=== PATIENT | female | born 1940 | race Caucasian/White ===

== ENCOUNTER 2017-06-20 07:49 | Inpatient (IN) | payer BC ==
[2017-06-19 14:42] VITALS: BMI 28.5
[~2017-06-20] VITALS: Ht 167.6 cm; Wt 77.8 kg
[2017-06-20] VITALS (36 sets, daily range): BP systolic 102–187; BP diastolic 55–82; PULSE 59–85; RESP 13–24; Ht 167.6 cm; Wt 77.8 kg
[2017-06-20] MEDS ORDERED: ATEN50TA PO (08:46)
--- NOTE | 2017-06-20 09:03 | RADRPT ---
PROCEDURE: XR Chest. CLINICAL INDICATION: Preoperative. TECHNIQUE: Single frontal view. COMPARISON: None. FINDINGS: The lungs are clear. The heart size is normal. There is calcification in the aorta consistent with atherosclerosis. There is no pleural effusion or pneumothorax. There is right shoulder calcific tendonitis. Surgical clips are present in the left upper quadrant o f the abdomen. IMPRESSION: 1. Atherosclerosis. 2. Right shoulder calcific tendonitis. 3. Surgical clips in the left upper quadrant of abdomen. 4. Otherwise unremarkable study. RPTAT: QQ .Rufino Murray MD, MD Date Time Electronically viewed and signed by .Rufino Murray MD, MD on 06/20/2017 09:03 .R/
[2017-06-20] MEDS ORDERED: CEFAZOLIN 1 GM/50 ML (PMX) 50 ML IVPB ONE (09:30)
[2017-06-20 10:20] LABS: BASOPHILS % 0.4 % (0.0-2.0); EOSINOPHILS # 0.2 10^3/ul (0.0-0.5); EOSINOPHILS % 3.7 % (0.0-7.0); HEMATOCRIT 36.8 % (37.0-47.0); HEMOGLOBIN 12.3 g/dl (12.0-16.0); LYMPHOCYTES # 1.6 10^3/ul (0.8-2.9); LYMPHOCYTES % 31.4 % (15.0-51.0); MEAN CORPUSCULAR HEMOGLOBIN 31.2 pg (29.0-33.0); MEAN CORPUSCULAR HGB CONC 33.4 g/dl (32.0-37.0); MEAN CORPUSCULAR VOLUME 93.4 fl (82.0-101.0); MEAN PLATELET VOLUME 10.8 fl (7.4-10.4); MONOCYTE # 0.4 10^3/ul (0.3-0.9); MONOCYTES % 7.6 % (0.0-11.0); NEUTROPHIL # 2.9 10^3/ul (1.6-7.5); NEUTROPHILS % 56.7 % (39.0-77.0); PLATELET COUNT 262 10^3/UL (140-415); RED BLOOD COUNT 3.94 10^6/ul (4.20-5.40); RED CELL DISTRIBUTION WIDTH 13.2 % (11.5-14.5); WHITE BLOOD COUNT 5.1 10^3/ul (4.8-10.8)
[2017-06-20 10:35] LABS: ALBUMIN 4.3 g/dl (3.3-4.9); ALBUMIN/GLOBULIN RATIO 1.26; BILIRUBIN,INDIRECT 0.5 mg/dl (0-1.1); BILIRUBIN,TOTAL 0.5 mg/dl (0.2-1.3); TOTAL PROTEIN 7.7 g/dl (6.1-8.1)
[2017-06-20 10:36] LABS: CALCIUM 9.3 mg/dl (8.4-10.2); CREATININE 0.66 mg/dl (0.44-1.00); INR 0.99; PARTIAL THROMBOPLASTIN TIME 29.8 Sec (25.0-35.0); POTASSIUM 3.8 mmol/L (3.5-5.1); PROTIME 13.1 Sec (12.2-14.2)
[2017-06-20] MEDS ORDERED: ROCURONIUM 50 MG INJ ONE (10:38)
[2017-06-20] MEDS ORDERED: MIDAZOLAM 1 MG/ML 2 ML INJ ONE (10:38)
[2017-06-20] MEDS ORDERED: FENTAnyl 50 MCG/ML VIAL ONE (10:38)
[2017-06-20] MEDS ORDERED: ROPIVACAINE 0.2% 20 ML VIAL ONE (10:38)
[2017-06-20] MEDS ORDERED: PROPOFOL 20 ML ONE (10:38)
[2017-06-20] MEDS ORDERED: POLYMYXIN/BACITRACIN 1L IRRIG ONE (11:33)
[2017-06-20] MEDS ORDERED: ONDANSETRON 4 MG INJ ONE (11:45)
[2017-06-20] MEDS ORDERED: METOCLOPRAMIDE 10 MG INJ ONE (11:45)
[2017-06-20] MEDS ORDERED: ACETAMINOPHEN 1000MG/100ML IV 100 ML ONE (11:45)
[2017-06-20] MEDS ORDERED: DEXAMETHASONE 4 MG/ML 1 ML INJ ONE (11:45)
[2017-06-20] MEDS ORDERED: SUGAMMADEX SODIUM 200 MG/2 ML VIAL IV ONE (11:53)
[2017-06-20] MEDS ORDERED: FENTAnyl 50 MCG/ML VIAL IV PRN (12:00)
[2017-06-20] MEDS ORDERED: morphine (1 MG/ML) 10ML SYRINGE IV PRN ×2 (12:00)
[2017-06-20] MEDS ORDERED: hydrALAzine 20 MG INJ IV PRN (12:00)
[2017-06-20] MEDS ORDERED: LABETALOL HCL 20MG INJ IV PRN (12:00)
[2017-06-20] MEDS ORDERED: EPHEDrine SULFATE 50 MG/5 ML SYG IV PRN (12:00)
[2017-06-20] MEDS ORDERED: HYDROmorphONE (0.2 MG/ML) 10ML SYG IV PRN ×2 (12:00)
[2017-06-20] MEDS ORDERED: DIPHENHYDRAMINE 50 MG INJ IV PRN (12:00)
[2017-06-20] MEDS ORDERED: MEPERIDINE 25 MG INJ IV PRN (12:00)
[2017-06-20] MEDS ORDERED: METOCLOPRAMIDE 10 MG INJ IV PRN (12:00)
[2017-06-20] MEDS ORDERED: ONDANSETRON 4 MG INJ IV PRN ×2 (12:00→14:00)
[2017-06-20] MEDS ORDERED: CEFAZOLIN 1 GM INJ ONE (12:06)
[2017-06-20] MEDS: HYDROmorphONE (0.2 MG/ML) 10ML SYG IV PRN ×3 (12:42→14:02)
--- NOTE | 2017-06-20 13:35 | SIPON ---
Date/Time of Note Date/Time of Note DATE: 06/20/17 TIME: 13:33 Operative Report Preoperative Diagnosis Symptomatic incarcerated ventral hernia Postoperative Diagnosis Same Operation/Procedure Performed Repair of incarcerated symptomatic ventral hernia with mesh Surgeon see signature line project administrative assistant None Anesthesia: general Estimated blood loss: 10 - 50 ml's Transfusion Required none Specimen Hernia sac Grafts/Implants none Complications none MARYLIN LINDA MD Jun 20, 2017 13:35
--- NOTE | 2017-06-20 13:52 | OPR ---
DATE OF OPERATION: 06/20/2017 PREOPERATIVE DIAGNOSIS: Large incarcerated ventral hernia. POSTOPERATIVE DIAGNOSIS: Large incarcerated ventral hernia. OPERATION PERFORMED: Repair of incarcerated ventral hernia with mesh and local skin flap advancement for mesh coverage. ANESTHESIA: General. ANESTHESIOLOGIST: . SURGEON: Dr. Johnson. POTATO SPOTTER: None. INDICATIONS FOR PROCEDURE: The patient is a 76-year-old female who has a pertinent past medical history of ovarian cancer. She has had previous abdominal and pelvic surgery. She developed a very large ventral incisional hernia. She was quite symptomatic and incarcerated. She was counseled as to the risks versus benefits of repair. She consented and was scheduled for surgery. OPERATIVE PROCEDURE: Patient was brought to the operating theater, placed under general endotracheal tube anesthesia. The abdomen was prepped and draped in the usual sterile fashion. The previous surgical incisional scar in the midline was opened from a point approximately 4 cm above the umbilicus, around the left side of the umbilicus and then to 0.4 cm below the umbilicus. The incision was carried out with 15 blade scalpel. Subcutaneous tissue was dissected with cautery down to the abdominal wall fascia. The fascia in the midline was very sparse. The fascia was elevated and incised allowing entry into the abdominal cavity. Moderate adhesions were taken down with combination of sharp dissection and cautery. A very large hernia defect was then identified. The contents of the hernia were meticulously dissected from the hernia sac, returned to the abdominal cavity. The sac was then resected and sent for pathologic analysis. The defect was approximately 8 cm x 10 cm. Therefore, an appropriate composite mesh patch was requested. It was soaked in antibiotic- containing saline. It was then placed into the hernia defect and sutured circumferentially with 0 Prolene sutures to the abdominal wall. The portion of the mesh that was exposed to open air was then covered by mobilizing flaps of tissue both medially and laterally. The flaps were then sutured together with 2-0 Vicryl sutures. Due to the large size of the defect, Dr. Johnson made the decision to place a #10 flat Indra-Olmstead drain through the right side of the abdominal wall, was cut to size, laid within the wound cavity and secured in place with 2-0 nylon suture in the standard fashion. The skin was then reapproximated with skin amparo. Patient tolerated the procedure well. ESTIMATED BLOOD LOSS: Approximately 30 mL. COMPLICATIONS: There were no complications. DISPOSITION: The patient was transferred in stable condition to the recovery room. Dictated By: Ash Johnson MD /dylan/misael /Document#: [id number]
[2017-06-20] MEDS ORDERED: morphine 2 MG INJ IV PRN (14:00)
--- NOTE | 2017-06-20 15:07 | RADRPT ---
Vent Rate: 53 bpm RR Interval: 0 msec MT Interval: 222 msec QRS Duration: 86 msec QT Interval: 448 msec QTC Interval: 420 msec P-R-T [place]: 71 - 57 - 65 degrees Sinus bradycardia with 1st degree AV block Nonspecific T wave abnormality Abnormal ECG Electronically Signed By: Dheeraj Galvez [id number]
[2017-06-20] MEDS: D5W-0.45 NACL + KCL 20 MEQ 1,000 ML IV SCH ×2 (15:17→21:35)
[2017-06-20] MEDS ORDERED: IBUPROFEN 400 MG TAB PO PRN (16:00)
[2017-06-20] MEDS ORDERED: ACETAMINOPHEN 325 MG TAB PO PRN (16:30)
--- NOTE | 2017-06-20 17:31 | HP ---
DATE OF ADMISSION: 06/20/2017 CHIEF COMPLAINT/HISTORY OF PRESENT ILLNESS: Patient is a 76-year- old female with history of hypertension, ovarian cancer, which was treated with extensive surgery done by Dr. Dheeraj Jeong and also underwent chemotherapy. Patient subsequently developed a large ventral hernia and was seen by Dr. Johnson as an outpatient. Patient was brought into the hospital today and was noted to have a large incarcerated ventral hernia, for which he underwent repair of incarcerated ventral hernia with mesh and local skin flap advancement for mesh coverage. Patient did have postoperative pain and is being admitted for further evaluation and management. Patient denied any recent chest pain, shortness of breath. No recent nausea, vomiting, or diarrhea. Patient did have a history of bowel obstruction during her surgery for ovarian cancer. Patient denied any subsequent episode of bowel obstruction. No reported headache, dizziness, or syncope. No history of focal weakness. No history of shortness of breath. No history of orthopnea and no history of leg edema. Rest of review of systems is unremarkable. PAST MEDICAL HISTORY: As stated above. In addition, patient also has history of bilateral cataract repair. ALLERGIES: PATIENT IS NOT SURE IF SHE IS ALLERGIC TO ANY MEDICATION. SOCIAL HISTORY: Ex-smoker, quit smoking 10 years ago. FAMILY HISTORY: Mother of ovarian cancer. MEDICATIONS PRIOR TO ADMISSION: Atenolol 50 mg once a day. PHYSICAL EXAMINATION: GENERAL: Patient conscious, awake, alert. VITAL SIGNS: Temperature 98.3, pulse 85, respiratory rate 18, blood pressure 172/72. O2 sat 98 percent on 2 L nasal cannula. HEENT EXAM: Normal. Oropharynx clear. NECK: Supple. No thyromegaly. CHEST: Fairly clear. CARDIAC: Normal. No murmur. ABDOMEN: Soft, status post surgery. EXTREMITIES: No leg edema. Pedal pulses palpable. SKIN: Without rash. NEUROLOGIC: Patient is awake, alert, with no gross focal deficits. LABORATORY: WBC 5.1, hemoglobin 12.3, platelets 262. Sodium 143, potassium 3.8, BUN 10, creatinine 0.6, glucose 102, calcium 9.3. AST 22, ALT 32, alk phos 82. IMPRESSION: 1. Large incarcerated ventral hernia, status post repair. 2. Hypertension. 3. Ovarian cancer, status post surgery and chemotherapy. PLAN: Patient admitted on medical floor. Patient was started on clear liquid diet, and I will resume her atenolol. Patient will also be given Tylenol, Wilson and IV morphine for pain control. Continue Zofran for nausea and vomiting, and SCDs for DVT prophylaxis. Plan of care discussed with nursing staff. Dictated By: Yoel Shin MD /dylan/roger /Document#: [id number]
[2017-06-20] MEDS: HYDROCODONE/APAP (5/325) TAB PO PRN ×2 (17:58→21:51)
[2017-06-20] MEDS ORDERED: VITAMIN A & D 5 GM OINT PACKET TOP ONE (19:40)
[2017-06-20] MEDS: ATENOLOL 50 MG TAB PO SCH (20:08)
[2017-06-21] MEDS: HYDROCODONE/APAP (5/325) TAB PO PRN ×5 (02:40→20:15)
[2017-06-21] MEDS: D5W-0.45 NACL + KCL 20 MEQ 1,000 ML IV SCH ×4 (02:40→21:35)
[2017-06-21 05:04] VITALS: BP 136/64; PULSE 58; RESP 18
[2017-06-21 08:33] VITALS: BP 132/60; RESP 18
[2017-06-21 15:53] VITALS: BP 130/60; RESP 18
--- NOTE | 2017-06-21 16:08 | PN ---
Date/Time of Note Date/Time of Note DATE: 06/21/17 TIME: 16:04 Assessment/Plan VTE Prophylaxis VTE Prophylaxis Intervention: SCD's Lines/Catheters IV Catheter Type (from Nrs): Peripheral IV Urinary Cath still in place: No Assessment/Plan Chief Complaint/Hosp Course No flatus, tolerates diet well, denies N/V. Problems: Assessment/Plan - Large incarcerated ventral hernia, status post repair. - Hypertension. - Ovarian cancer, status post surgery and chemotherapy. Exam/Review of Systems Vital Signs Vitals Vital Signs Date Time Temp Pulse Resp B/P Pulse Ox O2 Delivery O2 Flow Rate FiO2 06/21/17 15:53 98.0 70 18 130/60 90 06/21/17 05:04 Room Air 06/20/17 19:49 2.0 Intake and Output 06/20/17 06/20/17 06/21/17 15:00 23:00 07:00 Intake Total 1000 ml 570 ml 1230 ml Output Total 35 ml 690 ml 1740 ml Balance 965 ml -120 ml -510 ml Exam Constitutional: alert, oriented Neck: supple Respiratory: normal air movement Cardiovascular: nl pulses Gastrointestinal: non-tender, other (s/p surgery, LEROY), soft Results Result Diagram: 06/20/1792706/20/17927 Medications Medications Current Medications Ondansetron HCl (Zofran Inj) 4 mg Q6H PRN IV NAUSEA AND/OR VOMITING; Start at 14:00 Morphine Sulfate 2 mg 2 mg Q1H PRN IV PAIN; Start 06/20/17 at 14:00 Potassium Chloride/Dextrose/ Sod Cl (D5-1/2ns + KCl 20 Meq) 1,000 ml @ 125 mls/ hr Q8H IV Last administered on 06/21/17 02:40; Admin Dose 125 MLS/HR; Start at 13:35 Ibuprofen (Motrin) 400 mg Q6H PRN PO PAIN OR TEMP ABOVE 38C; Start 06/20/17 at 16:00 Atenolol (Tenormin) 50 mg QHS PO Last administered on 06/20/17 20:08; Admin Dose 50 MG; Start 06/20/17 at 21:00 Acetaminophen (Tylenol Tab) 650 mg Q4H PRN PO PAIN AND OR ELEVATED TEMP; Start 06/20/17 at 16:30 Acetaminophen/ Hydrocodone Bitart ([place] (5/325)) 1 tab Q4H PRN PO PAIN LEVEL 4 -6 Last administered on 06/21/17t 11:32; Admin Dose 1 TAB; Start 06/20/17 at 16: 30 JOHANNA CORREIA Jun 21, 2017 16:08
[2017-06-21] MEDS: ATENOLOL 50 MG TAB PO SCH (20:15)
[2017-06-21 20:22] VITALS: BP 170/76; RESP 20
[2017-06-22 00:20] VITALS: BP 155/69; PULSE 66; RESP 18
[2017-06-22] MEDS: HYDROCODONE/APAP (5/325) TAB PO PRN ×6 (02:36→22:31)
[2017-06-22] MEDS: D5W-0.45 NACL + KCL 20 MEQ 1,000 ML IV SCH ×3 (04:10→21:35)
[2017-06-22 06:10] VITALS: BP 147/71; PULSE 59; RESP 18
[2017-06-22 08:42] VITALS: BP 164/71; RESP 20
--- NOTE | 2017-06-22 12:04 | PN ---
DATE: 06/21/2017 SUBJECTIVE DATA: The patient is status post-repair of the incisional ventral hernia with mesh. Status postop day number 1. The patient complains of too much pain. No nausea, no vomiting. But no passing gas. No bowel movement. OBJECTIVE: GENERAL: Patient is alert, awake. VITAL SIGNS: Temperature 98.1, heart rate 77, respirations 17, blood pressure 137/64. Saturation 98-90 percent on 2 L nasal cannula. Indra-Olmstead drain has drained, in the past 24 hour, 105 mL, and 2 today from 7 a.m. to now which is 6 a.m., and has drained about 50 mL, it is sanguinous to serosanguineous. ABDOMEN: Soft. Dressing is intact. Bowel sounds present. No calf tenderness. ASSESSMENT AND PLAN: The patient is a 76-year-old female status post-laparotomy and repair of the large ventral incisional hernia with Composix mesh. The patient is doing fine. There is a drain in place which is draining sanguinous kind of fluid. It has been 50 mL since 7 o'clock in the morning. The patient has not had a bowel movement, not passing gas. Also, complaining of too much pain. We will keep the patient at least 1 night tonight extra until tomorrow morning, and we will evaluate tomorrow and if stable we can discharge her tomorrow morning. Dictated By: James Abreu MD /dylan/chris /Document#: [id number]
--- NOTE | 2017-06-22 12:20 | PN ---
Date/Time of Note Date/Time of Note DATE: 06/22/17 TIME: 12:20 Assessment/Plan VTE Prophylaxis VTE Prophylaxis Intervention: other Lines/Catheters IV [facility] Saline Lock Urinary Cath still in place: No Assessment/Plan Chief Complaint/Hosp Course - Large incarcerated ventral hernia, status post repair. - Hypertension. - Ovarian cancer, status post surgery and chemotherapy. Problems: Subjective 24 Hr Interval Summary Free Text/Dictation Patient has some residual abdominal pain Exam/Review of Systems Vital Signs Vitals Vital Signs Date Time Temp Pulse Resp B/P Pulse Ox O2 Delivery O2 Flow Rate FiO2 06/22/17 08:42 98.3 60 20 164/71 96 06/22/17 06:10 Room Air 06/20/17 19:49 2.0 Intake and Output 06/21/17 06/21/17 06/22/17 15:00 23:00 07:00 Intake Total 400 ml 1200 ml 950 ml Output Total 20 ml 935 ml Balance 400 ml 1180 ml 15 ml Exam Constitutional: well developed Head: atraumatic, normocephalic Neck: supple Respiratory: clear to auscultation Cardiovascular: regular rate and rhythm Gastrointestinal: non-tender, soft Extremities: normal pulses Results Result Diagram: 06/20/1792706/20/17927 Medications Medications Current Medications Ondansetron HCl (Zofran Inj) 4 mg Q6H PRN IV NAUSEA AND/OR VOMITING; Start at 14:00 Morphine Sulfate 2 mg 2 mg Q1H PRN IV PAIN; Start 06/20/17 at 14:00 Potassium Chloride/Dextrose/ Sod Cl (D5-1/2ns + KCl 20 Meq) 1,000 ml @ 125 mls/ hr Q8H IV Last administered on 06/21/17 02:40; Admin Dose 125 MLS/HR; Start at 13:35 Ibuprofen (Motrin) 400 mg Q6H PRN PO PAIN OR TEMP ABOVE 38C; Start 06/20/17 at 16:00 Atenolol (Tenormin) 50 mg QHS PO Last administered on 06/21/17 20:15; Admin Dose 50 MG; Start 06/20/17 at 21:00 Acetaminophen (Tylenol Tab) 650 mg Q4H PRN PO PAIN AND OR ELEVATED TEMP; Start 06/20/17 at 16:30 Acetaminophen/ Hydrocodone Bitart ([place] (5/325)) 1 tab Q4H PRN PO PAIN LEVEL 4 -6 Last administered on 06/22/17t 10:34; Admin Dose 1 TAB; Start 06/20/17 at 16: 30 Clonidine (Catapres) 0.1 mg Q6H PRN PO SBP GREATER THAN 160; Start 06/22/17 at 09:30 ABI CLAYTON Jun 22, 2017 12:20
[2017-06-22 18:49] VITALS: BP 148/66; PULSE 61
[2017-06-22] MEDS: ATENOLOL 50 MG TAB PO SCH (20:41)
[2017-06-22 21:20] VITALS: BP 142/64; RESP 20
[2017-06-23 02:29] VITALS: BP 113/58; RESP 20
[2017-06-23] MEDS: HYDROCODONE/APAP (5/325) TAB PO PRN ×6 (02:59→23:26)
[2017-06-23] MEDS: D5W-0.45 NACL + KCL 20 MEQ 1,000 ML IV SCH ×3 (05:35→21:35)
[2017-06-23 08:20] VITALS: BP 143/64; RESP 20
--- NOTE | 2017-06-23 10:47 | PN ---
Date/Time of Note Date/Time of Note DATE: 06/23/17 TIME: 10:46 Assessment/Plan VTE Prophylaxis VTE Prophylaxis Intervention: other Lines/Catheters IV Catheter Type (from Nrs): Saline Lock Urinary Cath still in place: No Assessment/Plan Chief Complaint/Hosp Course - Large incarcerated ventral hernia, status post repair. - Hypertension. - Ovarian cancer, status post surgery and chemotherapy. Problems: Subjective 24 Hr Interval Summary Free Text/Dictation Patient still have pain related to the hernia repair Exam/Review of Systems Vital Signs Vitals Vital Signs Date Time Temp Pulse Resp B/P Pulse Ox O2 Delivery O2 Flow Rate FiO2 06/23/17 08:20 98.1 54 20 143/64 95 06/22/17 06:10 Room Air 06/20/17 19:49 2.0 Intake and Output 06/22/17 06/22/17 06/23/17 15:00 23:00 07:00 Intake Total 720 ml 360 ml Output Total 30 ml 25 ml Balance 690 ml 335 ml Exam Constitutional: well developed Head: normocephalic Neck: supple Respiratory: clear to auscultation Cardiovascular: regular rate and rhythm Gastrointestinal: non-tender, soft Extremities: normal pulses Results Result Diagram: 06/20/1792706/20/17927 Medications Medications Current Medications Ondansetron HCl (Zofran Inj) 4 mg Q6H PRN IV NAUSEA AND/OR VOMITING; Start at 14:00 Morphine Sulfate 2 mg 2 mg Q1H PRN IV PAIN; Start 06/20/17 at 14:00 Potassium Chloride/Dextrose/ Sod Cl (D5-1/2ns + KCl 20 Meq) 1,000 ml @ 125 mls/ hr Q8H IV Last administered on 06/21/17 02:40; Admin Dose 125 MLS/HR; Start at 13:35 Ibuprofen (Motrin) 400 mg Q6H PRN PO PAIN OR TEMP ABOVE 38C; Start 06/20/17 at 16:00 Atenolol (Tenormin) 50 mg QHS PO Last administered on 06/22/17 20:41; Admin Dose 50 MG; Start 06/20/17 at 21:00 Acetaminophen (Tylenol Tab) 650 mg Q4H PRN PO PAIN AND OR ELEVATED TEMP; Start 9/28/17 at 16:30 Acetaminophen/ Hydrocodone Bitart ([place] (5/325)) 1 tab Q4H PRN PO PAIN LEVEL 4 -6 Last administered on 06/23/17 06:57; Admin Dose 1 TAB; Start 06/20/17 at 16: 30 Clonidine (Catapres) 0.1 mg Q6H PRN PO SBP GREATER THAN 160 Last administered on 06/22/17 17:05; Admin Dose 0.1 MG; Start 06/22/17 at 09:30 ABI CLAYTON Jun 23, 2017 10:47
[2017-06-23] MEDS ORDERED: MAGNESIUM HYDROXIDE 30ML CUP PO STA (12:32)
[2017-06-23] MEDS ORDERED: MAGNESIUM HYDROXIDE 30ML CUP PO PRN (13:00)
[2017-06-23 13:46] LABS: BASOPHILS % 0.5 % (0.0-2.0); EOSINOPHILS # 0.5 10^3/ul (0.0-0.5); EOSINOPHILS % 8.4 % (0.0-7.0); HEMATOCRIT 35.2 % (37.0-47.0); HEMOGLOBIN 11.7 g/dl (12.0-16.0); LYMPHOCYTES # 1.8 10^3/ul (0.8-2.9); LYMPHOCYTES % 33.2 % (15.0-51.0); MEAN CORPUSCULAR HEMOGLOBIN 31.4 pg (29.0-33.0); MEAN CORPUSCULAR HGB CONC 33.2 g/dl (32.0-37.0); MEAN CORPUSCULAR VOLUME 94.4 fl (82.0-101.0); MEAN PLATELET VOLUME 10.4 fl (7.4-10.4); MONOCYTE # 0.4 10^3/ul (0.3-0.9); MONOCYTES % 7.5 % (0.0-11.0); NEUTROPHIL # 2.8 10^3/ul (1.6-7.5); NEUTROPHILS % 50.2 % (39.0-77.0); PLATELET COUNT 277 10^3/UL (140-415); RED BLOOD COUNT 3.73 10^6/ul (4.20-5.40); RED CELL DISTRIBUTION WIDTH 13.5 % (11.5-14.5); WHITE BLOOD COUNT 5.5 10^3/ul (4.8-10.8)
--- NOTE | 2017-06-23 14:28 | PN ---
DATE: 06/23/2017 SUBJECTIVE DATA: Postop day number 3, status post laparotomy, repair of the large incarcerated ventral incisional hernia with placement of the mesh. Still complaining of some pain in the abdominal area. Has not had any bowel movement since admission. Is passing gas today only. States that her blood pressure was very high around 190s last night. The patient medication and Dr. Courtney Ceja, internal medicine, preferred to keep the patient one more day to control her blood pressure. OBJECTIVE: Awake, alert, oriented x3. Vital signs: Temperature 98.3, heart rate 54, respirations 20, blood pressure 143/64, saturation 95 percent on room air. Heart with regular rhythm. Lungs clear. Abdomen: Soft. Indra-Olmstead drain is in place draining serosanguineous fluid. Total drainage in past 24 hours, 65 cc and since morning until now is 75 cc. LABORATORY AND DIAGNOSTIC DATA: No lab has been done today. ASSESSMENT: Patient with status post repair of large incarcerated ventral incisional hernia, postoperative day number 3. The problem is the patient has had fluctuation and high blood pressure. She is being treated with medication to control it. The patient has not had any bowel movement yet. Is tolerating diet. So we are going to give some milk of magnesia today, make sure patient is ambulating and hopefully by tomorrow, the patient can be discharged home. Dictated By: James Abreu MD /dylan/gwendolyn /Document#: [id number]
[2017-06-23 16:00] VITALS: BP 173/76; RESP 20
[2017-06-23] MEDS: ATENOLOL 50 MG TAB PO SCH (20:44)
[2017-06-23 21:07] VITALS: BP_SYST 148; BP_SYST 150; BP_DIAS 66; BP_DIAS 71; RESP 19
[2017-06-23 23:07] VITALS: BP 137/63; PULSE 62; RESP 20
[2017-06-24 02:25] VITALS: BP 147/67; RESP 18
[2017-06-24] MEDS: HYDROCODONE/APAP (5/325) TAB PO PRN ×4 (03:29→18:02)
[2017-06-24 04:13] VITALS: BP 129/60; PULSE 59; RESP 2
[2017-06-24] MEDS: D5W-0.45 NACL + KCL 20 MEQ 1,000 ML IV SCH ×2 (05:35→13:01)
[2017-06-24 07:02] VITALS: BP 117/57
[2017-06-24 08:17] VITALS: BP 117/56; RESP 18
[2017-06-24 13:46] VITALS: BP 135/63; RESP 18
[2017-06-24] MEDS ORDERED: CLON0.1T14 PO (16:32)
[2017-06-24] MEDS ORDERED: HYDR-3498 PO (16:32)
[2017-06-24] MEDS ORDERED: ATEN50TA PO (16:32)
--- NOTE | 2017-06-24 19:48 | DS ---
Date/Time of Note Date/Time of Note DATE: 06/24/17 TIME: 19:46 Discharge Summary Admission/Discharge Info Admit Date/Time Jun 22, 2017 at 16:16 Discharge Date/Time Patient Condition: Stable Hx of Present Illness Patient is a 76-year- old female with history of hypertension, ovarian cancer, which was treated with extensive surgery done by Dr. Dheeraj Jeong and also underwent chemotherapy. Patient subsequently developed a large ventral hernia and was seen by Dr. Johnson as an outpatient. Patient was brought into the hospital today and was noted to have a large incarcerated ventral hernia, for which he underwent repair of incarcerated ventral hernia with mesh and local skin flap advancement for mesh coverage. Patient did have postoperative pain and is being admitted for further evaluation and management. Patient denied any recent chest pain, shortness of breath. No recent nausea, vomiting, or diarrhea. Patient did have a history of bowel obstruction during her surgery for ovarian cancer. Patient denied any subsequent episode of bowel obstruction. No reported headache, dizziness, or syncope. No history of focal weakness. No history of shortness of breath. No history of orthopnea and no history of leg edema. Rest of review of systems is unremarkable. Hospital Course - Large incarcerated ventral hernia, status post repair by Dr Johnson. - Hypertension. Continue atenolol and clonidine as needed - Ovarian cancer, status post surgery and chemotherapy. Home Meds Active Scripts Clonidine Hcl* (Catapres*) 0.1 Mg Tablet, 0.1 MG PO Q6H Y for SBP GREATER THAN 160, #30 TAB Prov:JOHANNA CORREIA 06/24/17 Hydrocodone Bit-Acetaminophen (Hydrocodone Bit-APAP) 5-325MG Tablet, 1 TAB PO Q4H Y for PAIN LEVEL 4-6, #30 TAB Prov:JOHANNA CORREIA 06/24/17 Atenolol* (Atenolol*) 50 Mg Tablet, 50 MG PO QHS, #30 TAB Prov:JOHANNA CORREIA 06/24/17 Follow-up Plan Follow-up with PMD in 2 weeks, follow-up with Dr. Johnson in 2 weeks Primary Care Provider Not On Staff Doctor Time spent on discharge: > 30 minutes JOHANNA CORREIA Jun 24, 2017 19:48
--- NOTE | 2017-06-25 06:50 | PN ---
DATE: 06/24/2017 SUBJECTIVE DATA: No complaint. Minimal abdominal pain. Has not had a bowel movement yet, but is passing gas. Has been out walking around. She states that her blood pressure is under control now and the nurse admitted that the blood pressure is under control now. OBJECTIVE DATA: GENERAL: Awake, alert, oriented x 3. VITAL SIGNS: 98.5, P 63, 18, 135/63, saturation 97 percent room air. LABS: No labs done today. CARDIAC: Heart regular. LUNGS: Clear. ABDOMEN: Soft. Indra-Olmstead draining serosanguineous which has drained 50 cc last 24 hours. ASSESSMENT AND PLAN: The patient is status post laparotomy and repair of the large ventral incisional hernia with mesh four days ago. The patient was kept here because her blood pressure was fluctuating, was being managed by medical service. Eventually, today blood pressure is under control. From surgical point of view, patient can be discharged home to be followed by Dr. Johnson, in the office with Indra-Olmstead in place. Dictated By: James Abreu MD /dylan/gwendolyn /Document#: [id number]
== END 2017-06-24 19:40 | disposition home or self-care (01) | DRG 355 ==
LOC: SDS 07:49 → MS1 13:36 → UNDOADMOB 13:36 → SDS 13:36 → MS1 14:20 → UNDOADMOB 15:23 → REC 15:23 → OBSVTOIN 06-22 14:32 → INTOOBSV 06-22 14:32 → OBSVTOIN 06-22 16:16 → MS1 06-22 16:16
PROVIDERS: ADMIT Surgery Surgical Oncology; ATTEND Surgery Surgical Oncology
PROC: 0HX7XZZ Transfer Abdomen Skin, External Approach (ICD-10-PCS; 2017-06-20)
PROC: 0WUF0JZ Supplement Abdominal Wall with Synthetic Substitute, Open Approach (ICD-10-PCS; principal; 2017-06-20 10:30)
DX: K43.6 Other and unspecified ventral hernia with obstruction, without gangrene (principal); I10 Essential (primary) hypertension; Z85.43 Personal history of malignant neoplasm of ovary; Z92.21 Personal history of antineoplastic chemotherapy; Z87.891 Personal history of nicotine dependence; E78.5 Hyperlipidemia, unspecified
CPT/HCPCS: 71010; 80053; 85025; 85610; 85730; 88304; 93005; A4310; C1781; J0131; J0360; J0690; J1100; J1170; J2250; J2270; J2405; J2765; J2795; J3010; J3480

== ENCOUNTER 2019-02-06 08:10 | Day surgery (SDC) | payer BC ==
[~2019-02-06] VITALS: Ht 165.1 cm; Wt 81.6 kg
[2019-02-06] VITALS (28 sets, daily range): BP systolic 127–163; BP diastolic 58–85; PULSE 58–74; RESP 18–28; Ht 165.1 cm; Wt 81.6 kg
[~2019-02-06 08:10] MED LIST: ATEN50TA PO; CEFAZOLIN 2 GM/50 ML (PMX) 50 ML IVPB ONE; CLON0.1T14 PO; HYDR-3601 PO; SOD CHLORIDE 0.9% 1,000 ML IV SCH
[2019-02-06] MEDS ORDERED: ACET-141 PO (09:41)
--- NOTE | 2019-02-06 10:57 | PREAC ---
Date/Time of Note Date/Time of Note DATE: 02/06/19 TIME: 10:56 Anesthesia Eval and Record Evaluation Time Pre-Procedure Interview DATE: 02/06/19 TIME: 10:56 Age 78 Sex female NPO: 8 hrs Preoperative diagnosis right breast cancer Planned procedure right partial mastectomy Past Medical History Past Medical History: Includes Cardio: HTN Pulm: Other (sinus issues) GI: Obesity Heme: Other (ovarian cancer, breast cancer) Surgery & Anesthesia Issues No known issue Meds Anticoagulation: No Beta Ke within 24 hr: Yes Active Scripts Atenolol* (Atenolol*) 50 Mg Tablet, 50 MG PO QHS, #30 TAB Prov:JOHANNA CORREIA 06/24/17 Reported Medications Acetaminophen* (Acetaminophen*) 500 MG Extra Strength Tablet, 500 MG PO Q6 PRN for PAIN AND OR ELEVATED TEMP, TAB 02/06/19 Discontinued Scripts Clonidine Hcl* (Catapres*) 0.1 Mg Tablet, 0.1 MG PO Q6H PRN for SBP GREATER THAN 160, #30 TAB Prov:JOHANNA CORREIA 06/24/17 Hydrocodone Bit-Acetaminophen (Hydrocodone Bit-APAP) 5-325MG Tablet, 1 TAB PO Q4H PRN for PAIN LEVEL 4-6, #30 TAB Prov:JOHANNA CORREIA 06/24/17 Current Medications Sodium Chloride 1,000 ml @ 75 mls/hr [id number] IV ; Start 02/06/19 at 06:00; Stop 02/06/19 at 18:00 Meds reviewed: Yes Allergies Coded Allergies: No Known Allergy (Unverified , 02/06/19) Allergies Reviewed: Yes Labs/Studies Labs Reviewed: Reviewed by anesthesiologist test: N/A Studies: ECG, CXR Pre-procedure Exam Last vitals Vital Signs Date Temp Pulse Resp B/P (MAP) Pulse Ox O2 O2 Flow FiO2 Time Delivery Rate 02/06/19 97.3 58 18 128/61 100 Room Air 10:30 (83) Airway: Adequate mouth opening, Adequate thyromental dist Mallampati: Mallampati II Teeth: Normal Lung: Normal Heart: Normal ASA Physical Status ASA physical status: 2 Emergency: None Planned Anesthetic General/MAC: ETT Planned Pain Management Parenteral pain med, Local by surgeon Pre-operative Attestations Prior to commencing anesthesia and surgery, the patient was re-evaluated, there was verification of: *The patient's identity *The results of appropriate recent lab work and preoperative vital signs *The above evaluation not changing prior to induction *Anesthetic plan, risk benefits, alternative and complications discussed with patient/family; questions answered; patient/family understands, accepts and wishes to proceed. BETTIE OTOOLE February 06, 2019 10:57
[2019-02-06] MEDS ORDERED: LIDOCAINE 2% (SDV) 5 ML INJ ONE (11:04)
[2019-02-06] MEDS ORDERED: CEFAZOLIN 1 GM INJ ONE (11:04)
[2019-02-06] MEDS ORDERED: ROCURONIUM 50 MG INJ ONE (11:04)
[2019-02-06] MEDS ORDERED: PROPOFOL 20 ML ONE (11:04)
[2019-02-06] MEDS ORDERED: ISOSULFAN BLUE 1% 5 ML INJ SC ONE (11:49)
[2019-02-06] MEDS ORDERED: MIDAZOLAM 1 MG/ML 2 ML INJ ONE (12:13)
[2019-02-06] MEDS ORDERED: ONDANSETRON 4 MG INJ ONE (12:24)
[2019-02-06] MEDS ORDERED: METOCLOPRAMIDE 10 MG INJ ONE (12:24)
[2019-02-06] MEDS ORDERED: DEXAMETHASONE 4 MG/ML 5 ML INJ ONE (12:24)
[2019-02-06] MEDS ORDERED: FAMOTIDINE 20 MG INJ ONE (12:24)
--- NOTE | 2019-02-06 12:48 | RADRPT ---
Vent Rate: 54 bpm RR Interval: 1104 msec [place] Interval: 242 msec QRS Duration: 94 msec QT Interval: 495 msec QTC Interval: 471 msec P-R-T [place]: 80 - 64 - [id number] degrees Sinus rhythm...normal P axis, V-rate 50- 99 Prolonged [place] interval...[place] >220, V-rate 50- 90 Electronically Signed By: Jamison Roberto
[2019-02-06] MEDS ORDERED: EPHEDrine 25 MG/5 ML SYG ONE (12:53)
[2019-02-06] MEDS ORDERED: GLYCOPYRROLATE 0.4 MG INJ ONE (13:04)
[2019-02-06] MEDS ORDERED: NEOSTIGMINE 3 MG/3 ML SYRINGE ONE (13:04)
--- NOTE | 2019-02-06 13:11 | SIPON ---
Date/Time of Note Date/Time of Note DATE: 02/06/19 TIME: 13:08 Operative Report Preoperative Diagnosis Invasive cancer right breast Postoperative Diagnosis Same Operation/Procedure Performed Right partial mastectomy with resection of the nipple areolar complex Surgeon see signature line supply assistant Dr Abreu Anesthesia: general Estimated blood loss: 10 - 50 ml's Transfusion Required none Specimen Right partial mastectomy specimen and sentinel lymph node with additional axillary node Grafts/Implants none Complications none MARYLIN LINDA MD February 06, 2019 13:11
[2019-02-06] MEDS ORDERED: MIDAZOLAM 1 MG/ML 2 ML INJ IV PRN (13:30)
[2019-02-06] MEDS ORDERED: hydrALAzine 20 MG INJ IV PRN (13:30)
[2019-02-06] MEDS ORDERED: morphine 2 MG INJ IV PRN (13:30)
[2019-02-06] MEDS ORDERED: MEPERIDINE 25 MG INJ IV PRN (13:30)
[2019-02-06] MEDS ORDERED: ONDANSETRON 4 MG INJ IV PRN ×2 (13:30)
[2019-02-06] MEDS ORDERED: ALBUTEROL 0.083% (NEB) 2.5 MG/3 ML AMP HHN PRN (13:30)
[2019-02-06] MEDS ORDERED: LABETALOL HCL 20MG INJ IV PRN (13:30)
[2019-02-06] MEDS ORDERED: HYDROmorphONE 1 MG/5 ML IV SYRINGE IV PRN ×3 (13:30)
[2019-02-06] MEDS ORDERED: ACETAMINOPHEN 1000MG/100ML IV 100 ML IVPB PRN (13:30)
[2019-02-06] MEDS ORDERED: OXYCODONE/ACETAMINOPHEN (5/325) TAB PO PRN ×2 (13:30)
--- NOTE | 2019-02-06 13:37 | OPR ---
DATE OF OPERATION: 02/06/2019 PREOPERATIVE DIAGNOSIS: Invasive cancer of the right breast. POSTOPERATIVE DIAGNOSIS: Invasive cancer of the right breast. PROCEDURE: Right partial mastectomy with resection of the nipple areolar complex and sentinel lymph node biopsy. ANESTHESIA: General. ANESTHESIOLOGIST: Vj Baker CRNA SURGEON: Ash Johnson MD ASSISTANT HOUSEKEEPING MANAGER: James Abreu MD and Jennifer Alvarez MD INDICATIONS FOR PROCEDURE: The patient is a 78-year-old female who presented with change in her righ t nipple and a palpable mass. She underwent workup including mammogram, ultrasound and biopsy which confirmed invasive cancer. The patient stated that due to the fact that she has been previously nikunj davidson for ovarian cancer that she wanted to pursue minimal adjuvant treatment. Specifically she said s he would not consider chemotherapy or radiation. When she was offered mastectomy, she stated that sh bárbara did not want to lose her breast and was then informed that the partial mastectomy would require en bloc resection with the nipple areolar complex and she consented and was scheduled for surgery. DESCRIPTION OF PROCEDURE: The patient was brought to the operating theater, placed under general ane sthesia. The right breast and axillary region was prepped and draped in usual sterile fashion. Appr oximately 3 mL of 1% Lymphazurin blue dye were then injected peritumorally and the breast was gently massaged for approximately 12 minutes. At this point, a 3 to 4 cm incision was made in the right axi llary hairline. Subcutaneous tissue was dissected with cautery down through the clavipectoral fascia . Dye stained lymphatic was identified. It was traced to a sentinel lymph node. There was at least 1 additional lymph node also noted in this area. The sentinel node and the additional lymph nodes w ere resected using the LigaSure device. Intraoperative frozen section performed by attending patholo gist, Dr. Nova Parra, was negative for metastatic disease; therefore no further lymph nodes were ta kaitlynn. The wound was irrigated. Minimal bleeding was controlled with cautery and the skin was then re approximated with 4-0 Vicryl suture in subcuticular fashion. Attention was then directed to performi ng the partial mastectomy. An elliptical incision was made widely around the nipple areolar complex, taking great care to ensure adequate margin. The subcutaneous tissue was dissected with cautery and subsequently, the breast parenchyma was dissected with cautery circumferentially around the nipple a nd the associated tumor, taking great care to ensure adequate margin. Specimen was then elevated, tr ansected, oriented and sent for permanent pathologic analysis. The wound was irrigated. Minimal ble eding was controlled with cautery. The skin was then reapproximated with a deep dermal layer of 4-0 Vicryl sutures in interrupted fashion, followed by final skin approximation with 5-0 PDS sutures in s ubcuticular fashion. Benzoin and Steri-Strips were then applied to both incisions. The patient tole rated the procedure well. The estimated blood loss was approximately 30 mL. There were no complicat ions and the patient was transported in stable condition to the recovery room where circumferential c ompression dressing was applied. Dictated By: ASH JOHNSON MD TL/ROMINA Conf#: [id number] DID#: [id number] CC: KIERA STEIN MD;*EndCC*
--- NOTE | 2019-02-06 13:53 | PAC ---
Date/Time of Note Date/Time of Note DATE: 02/06/19 TIME: 13:52 Post-Anesthesia Notes Post-Anesthesia Note Last documented vital signs BP 149/67 HR 70 Spo2 96% temp 98.0 rr 16 Vital Signs Date Temp Pulse Resp B/P (MAP) Pulse Ox O2 O2 Flow FiO2 Time Delivery Rate 02/06/19 98.0 13:50 02/06/19 58 18 128/61 100 Room Air 10:30 (83) Activity: WNL Respiratory function: WNL Cardiovascular function: WNL Mental status: Baseline Pain reasonably controlled: Yes Hydration appropriate: Yes Nausea/Vomiting absent: Yes BETTIE OTOOLE February 06, 2019 13:53
[2019-02-06] MEDS ORDERED: HYDROCODONE/APAP (5/325) TAB PO PRN (14:00)
[2019-02-06] MEDS ORDERED: HYDROCODONE/APAP (5/325) TAB GTB PRN (14:30)
[2019-02-06] MEDS: D5W-0.45 NACL + KCL 20 MEQ 1,000 ML IV SCH ×2 (17:59→21:30)
[2019-02-06] MEDS: HYDROCODONE/APAP (5/325) TAB PO PRN (19:54)
[2019-02-06] MEDS ORDERED: ATENOLOL 50 MG TAB PO SCH (21:00)
[2019-02-07 00:05] VITALS: BP 125/58; PULSE 68; RESP 20
[2019-02-07] MEDS: D5W-0.45 NACL + KCL 20 MEQ 1,000 ML IV SCH ×3 (02:10→13:30)
--- NOTE | 2019-02-07 05:41 | HP ---
DATE OF ADMISSION: 02/06/2019 CHIEF COMPLAINT AND HISTORY OF PRESENT ILLNESS: The patient is a 78-year-old female well known to me from previous admission. The patient has extensive medical history including hypertension and ovari an cancer for which she underwent extensive surgery by Dr. Dheeraj Jeong and also is status post chemot herapy. The patient was seen by Dr. Linda as an outpatient for change in her right nipple and palpab le mass. The patient underwent a workup including mammogram, ultrasound and biopsy which confirmed i nvasive cancer. The patient did not want to consider chemoradiation because of previous history of o varian cancer. The patient was offered mastectomy. She, however, told Dr. Linda that she did want t o lose her breath and was then informed that the partial mastectomy would require en bloc resection w ith the nipple areolar complex and she consented. The patient underwent right partial mastectomy wit h resection of nipple areolar complex and sentinel lymph node biopsy. The patient has significant ch est wall pain. The patient was admitted for further evaluation and management. No history of headac he, dizziness, syncope. No history of fever or chills. No history of nausea, vomiting. No history of abdominal pain. No history of focal weakness. REVIEW OF SYSTEMS: Rest of the systems unremarkable. PAST MEDICAL HISTORY: As stated above. In addition, the patient is status post repair of large inca rcerated ventral hernia back in 2017. ALLERGIES: NO KNOWN DRUG ALLERGIES. SOCIAL HISTORY: Ex-smoker, quit 12 years ago. FAMILY HISTORY: Mother of lung cancer. MEDICATIONS: Atenolol. IMPRESSION: 1. Right breast invasive cancer, status post right partial mastectomy with resection of nipple areol ar complex and sentinel lymph node biopsy. 2. Hypertension. 3. Ovarian cancer status post surgery and chemo. PLAN: The patient will be admitted on medical floor. The patient will be started on clear liquid di et and will be advanced as tolerated. Atenolol will be resumed. Pain will be managed with [place] and IV morphine. We will use SCD for DVT prophylaxis. We will order a CBC and BMP. Further recommenda tion will depend on the patient's hospital course. Dictated By: KIERA DALEY/ROMINA Conf#: [id number] DID#: [id number] CC: MARYLIN LINDA MD;*EndCC*
[2019-02-07 07:32] VITALS: BP 113/53; PULSE 66; RESP 15
--- NOTE | 2019-02-07 11:51 | PN ---
Date/Time of Note Date/Time of Note DATE: 02/07/19 TIME: 11:50 Assessment/Plan VTE Prophylaxis Risk score (from [facility] [place]0 risk: 5 SCD applied (from Ns): Yes Pharmacological prophylaxis: LMWH Lines/Catheters IV Catheter Type (from [facility]): Peripheral IV Assessment/Plan Hospital Course 1. Right breast invasive cancer, status post right partial mastectomy with resection of nipple areolar complex and sentinel lymph node biopsy. 2. Hypertension. 3. Ovarian cancer status post surgery and chemo. Result Diagram: 02/07/19 0458 02/07/19 0458 Results 24hrs Laboratory Tests Test 02/07/19 04:58 02/07/19 06:52 White Blood Count 7.2 # Red Blood Count 3.57 L Hemoglobin 10.9 L Hematocrit 33.9 L Mean Corpuscular Volume 95.0 Mean Corpuscular Hemoglobin 30.5 Mean Corpuscular Hemoglobin Concent 32.2 Red Cell Distribution Width 14.4 Platelet Count 211 # Mean Platelet Volume 11.8 H Immature Granulocytes % 0.300 Neutrophils % 84.5 H Lymphocytes % 11.6 L Monocytes % 3.6 Eosinophils % 0.0 Basophils % 0.0 Nucleated Red Blood Cells % 0.0 Immature Granulocytes # 0.020 Neutrophils # 6.1 Lymphocytes # 0.8 Monocytes # 0.3 Eosinophils # 0.0 Basophils # 0.0 Nucleated Red Blood Cells # 0.0 Sodium Level 142 Potassium Level 4.6 Chloride Level 110 Carbon Dioxide Level 22 Anion Gap 10 Blood Urea Nitrogen 11 Creatinine 0.55 Est Glomerular Filtrat Rate mL/min Glucose Level 152 Calcium Level 8.5 Lab Scanned Report REFERENCE LAB Subjective 24 Hr Interval Summary Free Text/Dictation Patient doing well s/p surgery, wants to go home Exam/Review of Systems Exam Vitals Vital Signs Date Temp Pulse Resp B/P (MAP) Pulse Ox O2 O2 Flow FiO2 Time Delivery Rate 02/07/19 98.4 66 15 113/53 100 Room Air 07:32 (73) Intake and Output 02/06/19 02/06/19 02/07/19 1515:00 23:00 07:00 IntakeIntake Total 1700 ml 680 ml 1795 ml OutputOutput Total 5 ml 350 ml BalanceBalance 1695 ml 330 ml 1795 ml Constitutional: well developed Head: normocephalic, atraumatic Neck: supple Respiratory: clear to auscultation Cardiovascular: regular rate and rhythm Gastrointestinal: soft, non-tender Extremities: normal pulses Results Results 24hrs Laboratory Tests Test 02/07/19 04:58 02/07/19 06:52 White Blood Count 7.2 # Red Blood Count 3.57 L Hemoglobin 10.9 L Hematocrit 33.9 L Mean Corpuscular Volume 95.0 Mean Corpuscular Hemoglobin 30.5 Mean Corpuscular Hemoglobin Concent 32.2 Red Cell Distribution Width 14.4 Platelet Count 211 # Mean Platelet Volume 11.8 H Immature Granulocytes % 0.300 Neutrophils % 84.5 H Lymphocytes % 11.6 L Monocytes % 3.6 Eosinophils % 0.0 Basophils % 0.0 Nucleated Red Blood Cells % 0.0 Immature Granulocytes # 0.020 Neutrophils # 6.1 Lymphocytes # 0.8 Monocytes # 0.3 Eosinophils # 0.0 Basophils # 0.0 Nucleated Red Blood Cells # 0.0 Sodium Level 142 Potassium Level 4.6 Chloride Level 110 Carbon Dioxide Level 22 Anion Gap 10 Blood Urea Nitrogen 11 Creatinine 0.55 Est Glomerular Filtrat Rate mL/min Glucose Level 152 Calcium Level 8.5 Lab Scanned Report REFERENCE LAB Medications Medication Current Medications Ondansetron HCl (Zofran Inj) 4 mg Q6H PRN IV NAUSEA AND/OR VOMITING; Start 02/06/19 at 13:30 Potassium Chloride/Dextrose/ Sod Cl 1,000 ml @ 125 mls/hr Q8H IV Last administered on 02/07/19at 02:10; Admin Dose 125 MLS/HR; Start 02/06/19 at 13:30 Morphine Sulfate (morphine) 2 mg Q1H PRN IV PAIN; Start 02/06/19 at 13:30 Acetaminophen 100 ml @ 400 mls/hr Q6H PRN IVPB PAIN; Start 02/06/19 at 13:30; Stop 02/07/19 at 13:29 Acetaminophen/ Hydrocodone Bitart ([place] (5/325)) 1 tab Q4H PRN PO MODERATE PAIN LEVEL 4-6 Last administered on 02/06/19at 19:54; Admin Dose 1 TAB; Start 02/06/19 at 17:56 Atenolol (Tenormin) 50 mg DAILY PO Last administered on 02/06/19at 21:00; Admin Dose 50 MG; Start 02/06/19 at 21:00 ABI CLAYTON February 07, 2019 11:51
[2019-02-07] MEDS: HYDROCODONE/APAP (5/325) TAB PO PRN (14:38)
--- NOTE | 2019-02-07 14:57 | PN ---
DATE: 02/07/2019 Postop day #1 status post right breast partial mastectomy with axillary dissection for cancer of righ t breast. SUBJECTIVE: The patient complaining of tightness of the dressing around her chest wall so that she c annot take a deep breath. OBJECTIVE: GENERAL: Awake, alert, oriented. VITAL SIGNS: Temperature maximum 98.4, heart rate 66, respiration 18, blood pressure 113/53, saturat ion 96 to 100% room air. LABORATORY DATA: WBC 7200, hemoglobin 10.9, hematocrit 33.9. Sodium, potassium, BUN, creatinine wit hin normal limits. PHYSICAL EXAMINATION: HEART: Regular. LUNGS: Clear. Dressing around the chest wall wrap around dressing is too tight. Therefore, removed the tape and removed the whole bias dressing and rewrapped it properly. PLAN: The patient can be discharged home today. Prescription for pain medication has been written radhika Ceja. The patient to follow in the office by Dr. Johnson and she should call on Saturday and make an appointment for followup. Other instruction was given to the patient. Dictated By: RACHEL ENGLE/ROMINA Conf#: [id number] DID#: [id number]
== END 2019-02-07 15:30 | disposition home or self-care (01) ==
LOC: SDS 08:10 → REC 13:11 → UNDOADMIN 13:11 → MS1 13:12 → REC 15:50 → SDS 02-07 15:30
PROVIDERS: ATTEND Surgery Surgical Oncology
DX: D05.11 Intraductal carcinoma in situ of right breast (principal); I10 Essential (primary) hypertension
CPT/HCPCS: 19301; 38500; 38792; 71045; 80048; 85025; 88307; 88331; 88332; 93005; J0690; J1100; J2250; J2405; J2710; J2765; J3010; J3480; Q9968